=== PATIENT | male | born 2000 ===

== ENCOUNTER 2023-08-26 10:53 | Day surgery (SDC) | payer OTHER ==
[2023-08-26] MEDS ORDERED: LACTATED RINGERS 1,000 ML IV ONE (11:02)
[2023-08-26] MEDS ORDERED: BUPIVACAINE 0.25% PF 30 ML VIAL ONE (11:11)
[2023-08-26] MEDS ORDERED: LIDOCAINE 1%-EPI 1:100000 20 ML MDV ONE (11:11)
[2023-08-26 11:24] VITALS: O2SAT 100
[2023-08-26] MEDS ORDERED: fentaNYL 100 MCG/2 ML VIAL ONE (12:52)
[2023-08-26] MEDS ORDERED: MIDAZOLAM 2 MG/2 ML VIAL ONE (12:52)
[2023-08-26] MEDS ORDERED: PROPOFOL 200 MG/20 ML VIAL IVP ONE (12:54)
--- NOTE | 2023-08-26 13:00 | ANESTHESIA ---
Pre-Anesthesia VS, & Labs - Diagnosis left mid arm nevi, left upper thigh mass - Procedure excision of left mid arm nevus and left upper thigh mass Vital Signs: Temp Pulse Resp BP Pulse Ox O2 Flow Rate 36.6 C 75 16 140/78 H 100 0 08/26/23 11:03 08/26/23 11:03 08/26/23 11:03 08/26/23 11:03 08/26/23 11:03 08/26/23 11:03 Height: 5 ft 6 in Weight (kg): 84.5 kg Body Mass Index: 30.0 BMI Classification: Obese - NPO >8 hours Home Medications and Allergies Home Medications: Ambulatory Orders Cyclobenzaprine [Flexeril] 10 mg PO TID PRN 08/19/23 Ibuprofen [Motrin] 600 mg PO Q6H PRN 08/19/23 Cyclobenzaprine [Flexeril] 10 mg PO TID PRN 08/19/23 Ibuprofen [Motrin] 600 mg PO Q6H PRN 08/19/23 Allergies/Adverse Reactions: Allergies Allergy/AdvReac Type Severity Reaction Status Date / Time No Known Drug Allergies Allergy Verified 08/19/23 14:35 Anes History & Medical History - Anesthetic History Anesthesia Complications: reports: No previous complications - Medical History Cardiovascular: reports: None Pulmonary: reports: Asthma (childhood) Gastrointestinal: reports: None Urinary: reports: None Neuro: reports: None Musculoskeletal: reports: None Endocrine/Autoimmune: reports: None Skin: reports: None Smoking Status: Never smoker Psychosocial: reports: No issues indicated History of Cancer?: No - Surgical History Other Past Surgical History: cyst removal Exam General: Alert, Oriented x3, Cooperative, No acute distress Dental: WNL Mouth Openin Fingerbreadth Neck Mobility: Normal Mallampati classification: II Thyromental Distance: 4-6 cm Mental/Cognitive Status: Alert/Oriented X3, Normal for patient Plan Anesthesia Type: MAC Consent for Procedure(s) Verified and Reviewed: Yes Code Status: Attempt Resuscitation ASA classification: 1-Healthy patient Is this case an emergency?: No
--- NOTE | 2023-08-26 13:23 | HISTORY & PHYSICAL EXAMINATION ---
Chief Complaint - Chief Complaint Chief Complaint: left arm nevus and left leg cystic lesion History of Present Illness - History Obtained From Records Reviewed: yes History obtained from: pt Exam Limitations: none - History of Present Illness HPI Comment/Other: growing and symtomatic skin lesions left forearm and left thigh History - Past Medical History Cardiovascular: reports: None Respiratory: reports: Asthma (childhood) Neuro: reports: None Endocrine/Autoimmune: reports: None GI: reports: None : reports: None HEENT: reports: Chronic vision loss Psych: reports: None Musculoskeletal: reports: None Derm: reports: None MRSA Hx?: No - Past Surgical History Other past surgical history: cyst removal Meds/Allgy - Home Medications Home Medications: Ambulatory Orders Medication Instructions Recorded Confirmed Cyclobenzaprine [Flexeril] 10 mg PO TID PRN 08/19/23 08/19/23 Ibuprofen [Motrin] 600 mg PO Q6H PRN 08/19/23 08/19/23 - Allergies Allergies/Adverse Reactions: Allergies Allergy/AdvReac Type Severity Reaction Status Date / Time No Known Drug Allergies Allergy Verified 08/19/23 14:35 Review of Systems - Other Findings Other Findings: 10 pt ros as above otherwise unremarkable Exam - Vital Signs Vital Signs: Vital Signs x48h Temp Pulse Resp BP Pulse Ox O2 Flow Rate 08/26/23 11:03 36.6 C 75 16 140/78 H 100 0 - Physical Exam General Appearance: positive: No acute distress, Alert Eyes Bilateral: positive: PERRL, EOMI ENT: positive: No signs of dehydration Neck: positive: No JVD, Trachea midline Respiratory: positive: No respiratory distress Cardiovascular: positive: Regular rate & rhythm Extremities: positive: Other (left arm nevus and nearly 3 cm left thigh cystic mass) Conclusion/Plan - Problem List (1) Nevus Conclusion/Plan: and growing cystic lesion left thigh. plan excision both. parq held and co nsent obtained
[2023-08-26] MEDS ORDERED: LIDOCAINE MPF 1%-EPI 1:200000 30 ML VIAL SUBQ ONE ×2 (13:48)
[2023-08-26] MEDS ORDERED: BUPIVACAINE 0.25% PF 30 ML VIAL SUBQ ONE ×2 (13:48)
[2023-08-26] MEDS ORDERED: LACTATED RINGERS 500 ML IV ONE (14:21)
[2023-08-26] MEDS ORDERED: HYDROcod/ACETAM 10 MG/325 MG TABLET PO PRN (14:27)
--- NOTE | 2023-08-26 14:33 | ANESTHESIA POST OP EVALUATION ---
Anesthesia Post Eval - Post Anesthesia Eval Vitals: Last Vital Signs Temp 36.3 C L 08/26/23 14:21 Pulse 65 08/26/23 14:21 Resp 16 08/26/23 14:21 BP 130/65 08/26/23 14:21 Pulse Ox 100 08/26/23 14:21 O2 Flow Rate 0 08/26/23 11:03 CV Function Including HR & BP: Stable Pain Control: Satisfactory Nausea & Vomiting: Negative Mental Status: Baseline Respiratory Status: Airway Patent Hydration Status: Satisfactory Anesthesia Complications: None
--- NOTE | 2023-08-26 14:34 | OPERATIVE REPORT ---
Operative Report - General Procedure Date: 08/26/23 Planned Procedure: excision left forearm nevus and left thigh cystic mass Pre-Op Diagnosis: 3 mm left forearm nevus and 3 cm cystic subcutaneous mass left thigh Procedure Performed: excision left forearm nevus and left thigh mass Post Op Diagnosis: as above - Procedure Note Anesthesia Technique: Local, MAC Pathology: leg mass sent. nevus benign / not sent Estimated Blood Loss (mL): 0 Indications: growing and symptomatic nevus and left thigh mass Findings: as above Complications: none - Other Other Information/Narrative: The patient was prepped identified brought to the operating room and placed in supine position. Monitored anesthesia care and IV sedation was given. He was prepped and draped in a sterile fashion. Antibiotics were not given. Local anesthetic was given. He had a 3 mm growing symptomatic nevus left forearm. This was removed with a 5 mm elliptical incision. Incision was closed with 3 buried interrupted 4-0 Monocryl. The left thigh cystic mass was then addressed. It was subdermal. An elliptical incision was made. The 3 cm cystic mass was removed intact and sent for pathology. Hemostasis was achieved and assured with cautery. Intermediate repair was performed. Interrupted 2-0 Vicryl sutures were placed deep in the adipose tissue. Buried interrupted subdermal 3-0 Vicryl sutures were then placed. Skin was closed with a running 4-0 Monocryl subcuticular suture. Steri-Strips and dressing were applied. Tolerated the procedure well [facility] in good condition.
[2023-08-26] MEDS ORDERED: HYDROcod/ACETAM 5/325 MG TABLET ONE (14:51)
[2023-08-26 14:53] VITALS: BP 123/91
[2023-08-26] MEDS ORDERED: HYDROcod/ACETAM 5/325 MG TABLET PO ONE (14:54)
== END 2023-08-26 10:54 | disposition home or self-care (01) ==
LOC: SDS 10:53
PROVIDERS: ATTEND Surgery
PROC: 0JBM0ZZ Excision of Left Upper Leg Subcutaneous Tissue and Fascia, Open Approach (ICD-10-PCS; principal; 2023-08-26 14:00)
DX: D36.7 Benign neoplasm of other specified sites (principal); L72.8 Other follicular cysts of the skin and subcutaneous tissue; E66.9 Obesity, unspecified; Z68.30 Body mass index [BMI] 30.0-30.9, adult; Z87.09 Personal history of other diseases of the respiratory system
CPT/HCPCS: 11400; 11403; A9270; J7120